=== PATIENT | male | born 1995 | race Caucasian/White ===

== ENCOUNTER 2018-06-16 12:55 | Emergency (ER) | payer OTHER ==
[~2018-06-16] VITALS: Ht 167.6 cm; Wt 204.1 kg
[2018-06-16] MEDS ORDERED: DEXAMETHASONE SOD PHOS 10 MG/1 ML VIAL INJ ONE (13:45)
[2018-06-16] MEDS ORDERED: CYCLOBENZAPRINE HCL 10 MG TAB PO ONE (13:45)
[2018-06-16] MEDS ORDERED: KETOROLAC TROMETHAMINE 60 MG/2 ML VIAL IM ONE (13:45)
--- NOTE | 2018-06-16 15:40 | Diagnostic Imaging Report ---
PROCEDURE:L-SPINE COMPLETE COMPARISON:None. INDICATIONS:LOW BACK PAIN FINDINGS: There are 5 lumbar-type vertebral bodies. The vertebral bodies are well-aligned without evidence of spondylolisthesis. There are no acute displaced fractures, lytic or blastic lesions. Vertebral body heights are maintained. Bilateral oblique views show no spondylolysis. The sacroiliac joints are unremarkable. CONCLUSION: No acute abnormalities. Percy Diaz M.D. Dictated by: Percy Diaz M.D. on 06/16/2018 at 15:45 Electronically approved by: Percy Diaz M.D. on 06/16/2018 at 15:45
--- NOTE | 2018-06-16 15:45 | Diagnostic Imaging Report ---
PROCEDURE:C-SPINE COMPLETE COMPARISON:None. INDICATIONS:CERVICAL SPINE PAIN FINDINGS: The cervical spine visualized in the lateral view from the skull base to C6-C7. There are no acute, displaced fractures, lytic or blastic lesions. Minimal grade 1 anterolisthesis of C2 on C3. The vertebral body heights and disc-space heights are well-maintained. The C1/C2-odontoid interval is normal. Bilateral oblique views show patent neural foramina. The pre-vertebral soft tissues are normal. Subtle fractures, ligamentous and soft tissue injuries, cannot be excluded on the basis of this examination. CONCLUSION: Minimal grade 1 anterolisthesis of C2 on C3. Otherwise, unremarkable exam. Percy Diaz M.D. Dictated by: Percy Diaz M.D. on 06/16/2018 at 15:50 Electronically approved by: Percy Diaz M.D. on 06/16/2018 at 15:50
== END 2018-06-16 16:38 | disposition home or self-care (01) ==
LOC: ER 12:55
DX: M54.2 Cervicalgia (principal); M54.5 Low back pain; S13.4XXA Sprain of ligaments of cervical spine, initial encounter; S33.9XXA Sprain of unspecified parts of lumbar spine and pelvis, initial encounter; X58.XXXA Exposure to other specified factors, initial encounter
CPT/HCPCS: 72050; 72110; 99283; J1100; J1885

== ENCOUNTER 2018-07-21 20:04 | Emergency (ER) | payer OTHER ==
[~2018-07-21] VITALS: Ht 167.6 cm; Wt 204.1 kg
--- NOTE | 2018-07-21 20:39 | Operative Report ---
DATE OF PROCEDURE: No dictation, length (00:02). Job#: [id number]
[2018-07-21] MEDS ORDERED: KETOROLAC TROMETHAMINE 30 MG/ML VIAL IM STA (21:03)
== END 2018-07-21 21:30 | disposition home or self-care (01) ==
LOC: FSED 20:04
DX: G43.709 Chronic migraine without aura, not intractable, without status migrainosus (principal)
CPT/HCPCS: 99282; J1885